=== PATIENT | male | born 1950 | race Two or more races ===

== ENCOUNTER 2024-04-28 12:47 | Emergency (ER) | payer OTHER ==
[~2024-04-28] VITALS: Ht 180.3 cm; Wt 110.0 kg
[2024-04-28] MEDS: SODIUM CHLORIDE 0.9% 1,000 ML IV ONE (13:00)
[2024-04-28 13:28] LABS: Hematocrit 33.9 % (41.0-53.0); Mean Corpuscular Hemoglobin 29.4 pg (28.0-32.0); Mean Corpuscular Hgb Conc. 32.5 g/dL (32.0-36.0); Mean Corpuscular Volume 90.6 fL (80.0-100.0); Platelet Count (auto) 241 10^3/uL (140-450); Red Blood Cells 3.74 10^6/uL (4.5-5.90); Red Cell Distribution Width 14.7 % (11.8-14.3); White Blood Cell 5.9 10^3/uL (4.4-10.8)
[2024-04-28 13:31] VITALS: PULSE 92; RESP 20; TEMP 98.1; O2SAT 97
[2024-04-28 13:50] LABS: Chloride 107 mmol/L (98-107); Potassium 4.5 mmol/L (3.5-5.1); Sodium 130 mmol/L (136-145)
[2024-04-28 13:51] LABS: Anion Gap 8 (5-15); Calcium 8.6 mg/dL (8.7-10.4); Carbon Dioxide 15 mmol/L (20-30)
[2024-04-28 13:56] LABS: BUN/Creatinine Ratio 15.1 (10.0-20.0); Blood Urea Nitrogen 23 mg/dL (9-23); Glucose 206 mg/dL (74-106)
[2024-04-28 13:57] LABS: Basophils % (manual) 0 (0.0-2.0); Blast Cells 0; Eosinophils % (manual) 0 (0-7); Metamyelocytes % 0; Myelocytes % 0; Promyelocytes % 0; Reactive Lymphocytes 0
[2024-04-28] MEDS: ONDANSETRON HCL 4 MG/2 ML VIAL IV ONE (14:24)
[2024-04-28 14:41] LABS: Band Neutrophils % (manual) 12; Lymphocytes % (manual) 24 (10.0-50.0); Monocytes % (manual) 15 (0-12); Platelet Estimate Adequate
[2024-04-28 18:29] VITALS: BP 103/57; PULSE 88; RESP 15; O2SAT 98
== END 2024-04-28 16:46 | disposition short-term general hospital (02) ==
LOC: ER 12:47 → EDBD 12:47 → ER 16:46
DX: I95.9 Hypotension, unspecified (principal); E11.65 Type 2 diabetes mellitus with hyperglycemia; K52.9 Noninfective gastroenteritis and colitis, unspecified; I10 Essential (primary) hypertension
CPT/HCPCS: 36415; 80048; 84484; 85007; 85027; 96361; 96374; 99285; J2405; J7030